=== PATIENT | female | born 1940 | race Caucasian/White ===

== ENCOUNTER 2018-08-06 14:26 | Inpatient (IN) | payer MEDICARE, BC ==
[~2018-08-06] VITALS: Ht 177.8 cm; Wt 70.8 kg
--- NOTE | ~2018-08-06 | PROC ---
[address] [address] PROCEDURE REPORT Name: BRANT BURTON Room: [address] IN M.R.#: [id number] Admission: 08/06/18 Attend Phys: Erwin Ivey MD Discharge: 08/09/18 Date of : 39 Report #: [id number] THIS REPORT FOR: //name// For GI report, please see the Provation report in Perceptive 7. By: [id number] Records Staff MARIAH /KAYLYNN
--- NOTE | ~2018-08-06 | CON ---
[address] [address] CONSULTATION Name: MICHEALBRANT K Room: [address] IN M.R.#: [id number] Admission: 08/06/18 Attend Phys: Erwin Ivey MD Discharge: Date of : 39 Report #: [id number] THIS REPORT FOR: //name// CC: Erwin Stevens MD DATE OF SERVICE: 08/07/2018 REFERRING PHYSICIAN: Erwin Ivey MD. REASON FOR CONSULTATION: 1. Acute anemia superimposed on chronic anemia. 2. End-stage renal disease, on chronic hemodialysis on Thursday, and Thursday with access issues at this present time. 3. 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 4. Remote history of ulcerative colitis, which is currently inactive at this time. 5. Inability to do a full colonoscopy earlier this year at [facility] due to excessive looping of the endoscope -- records to be retrieved. RECOMMENDATIONS: 1. We will proceed with upper endoscopy and possible colonoscopy on Thursday, but only after she has had hemodialysis. 2. We would retrieve records from [facility] regarding previous care. 3. Await Hematology and Vascular Surgery consultations. I have discussed the plans with the patient as well as her family and they are agreeable to the same. HISTORY OF PRESENT ILLNESS: The patient is a very pleasant 78-year-old white female who is admitted to the hospital with symptomatic anemia, just severe fatigue. She has had some dark stools, but has been on iron. She denies any complaints of any abdominal pain or any problems with her bowels. Her bowel frequency is normal. She has been on peritoneal dialysis for quite some time, but just before , she began on hemodialysis. She is doing this on Thursday, and Thursday, but she is having some difficulty with the same. She is followed by Dr. Chas Laughlin for the same. The primary care provider is Dr. Latrice Stevens. With regards to the history of cirrhosis, she [place] [address] CONSULTATION Name: BRANT BURTON Room: [address] IN [facility]#: [id number] Admission: 08/06/18 Attend Phys: Erwin Ivey MD Discharge: Date of : 39 Report #: [id number] at the x-ray or CAT scan and she subsequently underwent serologic studies or evaluation by consultants in Gastroenterology and Dr. Grace, which apparently was unremarkable. She has not had a liver biopsy. She has had no known family history of liver issues. She has no notable risks factors for liver disease other than the fact that she used be to obese and has diabetes. There has not been any history to suggest she has got decompensated liver disease with encephalopathy, ascites or varices. As I mentioned above, she underwent upper endoscopy and attempted colonoscopy earlier this year. We will retrieve the old records regarding the same. ALLERGIES: ALENDRONATE, HYDROMORPHONE, PENICILLIN, TRAZODONE. MEDICATIONS: Include B complex, calcitriol, calcium acetate, gabapentin, lispro, lactulose, furosemide, potassium, senna, sucroferric oxyhydroxide, pyridoxine and B12. PAST MEDICAL AND SURGICAL HISTORY: Remarkable for hypertension, diabetes, chronic kidney disease and chronic renal failure for which she is now on dialysis. She has a history of kidney stones, tonsillectomy, she had club foot surgery, hysterectomy, hernia repair, right knee surgery, laparoscopic cholecystectomy, left foot reconstruction. SOCIAL HISTORY: She lives at home with her , does not smoke or drink. FAMILY HISTORY: Negative. PHYSICAL EXAMINATION: GENERAL: Revealed an ill-appearing 78-year-old white female who is awake and alert. CARDIOPULMONARY: Revealed a systolic murmur, most likely related from her fistula. LUNGS: Clear. ABDOMEN: Soft. I cannot really appreciate her liver being firm or organomegaly. LABORATORY DATA: From 08/07/2018 revealed a white count of 7.9, hemoglobin 6.9, platelet count 142,000. On admission, the patient's hemoglobin is 5.9. She did receive 1 unit of blood. Sodium 136, potassium 3.4, chloride 99, bicarbonate is 31, BUN 33, creatinine 3.6. Her total bilirubin 0.3, alkaline phosphatase 59, AST is 37, ALT 27, albumin is 2.5. Iron saturation is 19% with ferritin of 612. Folate is 72.3 and B12 level 1107. DISCUSSION: At the present time, it is unclear to me why she has problems with acute anemia. We will proceed with upper endoscopy and possible colonoscopy early next week on Thursday and will review [place] [address] CONSULTATION Name: MICHEALBRANT Barbosa Room: [address] IN ..#: [id number] Admission: 08/06/18 Attend Phys: Erwin Ivey MD Discharge: Date of : 39 Report #: [id number] discussed plans with the patient, she is agreeable to proceed with the upper endoscopy. By: 0116 123Ace Farooq DO /faith
[2018-08-06 15:56] VITALS: BP 116/33
[2018-08-06] MEDS ORDERED: NEPHROCAPS SOFT1 CAP PO (17:16)
[2018-08-06] MEDS ORDERED: CALCITRIOL0.5 MCG PO (17:19)
[2018-08-06] MEDS ORDERED: CALCIUM ACETAT667 MG PO (17:20)
[2018-08-06] MEDS ORDERED: EYE OMEGA ADVA1 EACH PO (17:21)
[2018-08-06] MEDS ORDERED: NEURONTIN600 MG PO (17:22)
[2018-08-06] MEDS ORDERED: GENTAMICIN 0.1%15 G2 TOP (17:24)
[2018-08-06] MEDS ORDERED: HUMALOG KW100 UNIT/1 SUBQ (17:25)
[2018-08-06 17:29] LABS: MCH 30.5 pg (26.0-34.0); MCHC 31.3 g/dL (28.0-37.0); MCV 97.4 fL (80.0-100.0); MPV 8.5 fl. (7.2-11.1); RBC 1.93 mil/uL (4.20-5.00); RDW-CV 20.7 % (10.5-14.5); WBC 7.7 thou/uL (4.0-11.0)
[2018-08-06] MEDS ORDERED: CONSTULOSE10 GM/152 PO (17:29)
[2018-08-06] MEDS ORDERED: LANTUS SUBQ (17:30)
[2018-08-06 17:31] LABS: HEMATOCRIT 18.8 % (37.0-47.0)
[2018-08-06] MEDS ORDERED: POTASSIUM20 PO (17:31)
[2018-08-06] MEDS ORDERED: LASIX 80 MG TAB80 MG PO (17:31)
[2018-08-06] MEDS ORDERED: SENNA8.6 MG PO (17:32)
[2018-08-06] MEDS ORDERED: VELPHORO500 MG PO (17:33)
[2018-08-06] MEDS ORDERED: PYRIDOXINE HCL50 MG PO (17:33)
[2018-08-06] MEDS ORDERED: VITAMIN B12-FO1 EAC1 PO (17:35)
[2018-08-06 17:37] LABS: CALCIUM 9.3 mg/dL (8.5-10.1); CREATININE 3.3 mg/dL (0.6-1.3); POTASSIUM 3.9 mmol/L (3.5-5.1)
[2018-08-06 17:40] LABS: HEMOGLOBIN 5.9 gm/dL (12.0-15.0)
[2018-08-06 17:42] LABS: ALBUMIN 2.5 g/dL (3.4-5.0); TOTAL BILIRUBIN 0.3 mg/dL (<0.1-1.0); TOTAL PROTEIN 5.5 g/dL (6.4-8.2)
[2018-08-06 18:31] VITALS: BP 123/50; BP 124/51; BP 130/54
[2018-08-06 20:00] VITALS: BP 124/51
[2018-08-07 00:39] VITALS: BP 110/38
[2018-08-07 04:18] LABS: ABSOLUTE BASOPHILS 0.1 thou/uL (0.0-0.2); ABSOLUTE EOSINOPHILS 0.2 thou/uL (0.0-0.7); ABSOLUTE MONOCYTES 1.1 thou/uL (0.0-1.2); ABSOLUTE NEUTROPHILS 5.6 thou/uL (1.6-8.1); LYMPHOCYTES 12.1 %; MCH 31.1 pg (26.0-34.0); MCV 94.2 fL (80.0-100.0); MONOCYTES 13.9 %; MPV 8.3 fl. (7.2-11.1); NUCLEATED RBCS 0 /100WBC; PLATELET COUNT* 142 thou/uL (150-400); RBC 2.23 mil/uL (4.20-5.00); RDW-CV 19.8 % (10.5-14.5); WBC 7.9 thou/uL (4.0-11.0)
[2018-08-07 04:21] LABS: CALCIUM 9.2 mg/dL (8.5-10.1); CREATININE 3.6 mg/dL (0.6-1.3); POTASSIUM 3.4 mmol/L (3.5-5.1)
[2018-08-07 04:45] LABS: HEMOGLOBIN 6.9 gm/dL (12.0-15.0)
[2018-08-07 05:19] VITALS: BP 113/40
[2018-08-07 08:20] VITALS: BP 123/39
[2018-08-07 12:00] VITALS: BP 113/37
[2018-08-07 16:00] VITALS: BP 98/36
[2018-08-07 20:00] VITALS: BP 121/46
[2018-08-08 00:08] VITALS: BP 108/49
[2018-08-08 04:00] VITALS: BP 115/37
[2018-08-08 04:33] LABS: ABSOLUTE BASOPHILS 0.1 thou/uL (0.0-0.2); ABSOLUTE EOSINOPHILS 0.2 thou/uL (0.0-0.7); ABSOLUTE LYMPHOCYTES 1.3 thou/uL (0.8-5.3); ABSOLUTE MONOCYTES 1.2 thou/uL (0.0-1.2); ABSOLUTE NEUTROPHILS 5.9 thou/uL (1.6-8.1); BASOPHILS 0.6 %; EOSINOPHILS 1.8 %; HEMATOCRIT 21.4 % (37.0-47.0); LYMPHOCYTES 15.2 %; MCH 31.1 pg (26.0-34.0); MCHC 32.5 g/dL (28.0-37.0); MCV 95.9 fL (80.0-100.0); MONOCYTES 13.9 %; MPV 8.4 fl. (7.2-11.1); NUCLEATED RBCS 0 /100WBC; PLATELET COUNT* 152 thou/uL (150-400); POLYS 68.5 %; RBC 2.23 mil/uL (4.20-5.00); WBC 8.7 thou/uL (4.0-11.0)
[2018-08-08 04:48] LABS: HEMOGLOBIN 6.9 gm/dL (12.0-15.0)
[2018-08-08 05:02] LABS: CALCIUM 9.1 mg/dL (8.5-10.1); CREATININE 4.3 mg/dL (0.6-1.3); POTASSIUM 3.6 mmol/L (3.5-5.1)
[2018-08-08 07:50] VITALS: BP 96/38
--- NOTE | 2018-08-08 08:35 | CON ---
[address] [address] CONSULTATION Name: BRANT BURTNO Room: [address] IN .R.#: [id number] Admission: 08/06/18 Attend Phys: Erwin Ivey MD Discharge: Date of : 39 Report #: [id number] THIS REPORT FOR: //name// CC: Erwin Pollard Rodney DATE OF SERVICE: 08/07/2018 NEPHROLOGY CONSULTATION REFERRING PHYSICIAN: Erwin Ivey M.D. REASON FOR NEPHROLOGY CONSULTATION: End-stage renal disease for hemodialysis needs. REASON FOR ADMISSION: Anemia, weakness and fatigue. HISTORY OF PRESENT ILLNESS: This is a 78-year-old white female who has a past medical history of end-stage renal disease, has been on dialysis since 2015, has been on peritoneal dialysis, but transitioned to hemodialysis just a week ago. The patient was sent to the hospital for blood transfusion as her hemoglobin was 5.9 and she has received a unit of blood transfusion last night and she has come up to 6.9 and will most likely receive another unit of blood transfusion today. She still makes a lot of urine and goes about 4-5 times a day. End-stage renal disease is because of diabetes and hypertension. GI has been consulted to evaluate her over here as well. The reason why she was switched from peritoneal dialysis to hemodialysis for about 2-4 weeks for now is because she was getting a lot of fluid with peritoneal dialysis and so we are trying to give her peritoneal membranes some rest. Her is at her bedside. She is currently not having any shortness of breath. REVIEW OF SYSTEMS: As mentioned in the history of present illness. She has marked leg edema and she is very weak. ALLERGIES: ALENDRONATE, HYDROMORPHONE, PENICILLIN G AND TRAZODONE. PAST MEDICAL AND SURGICAL HISTORY: Includes tonsillectomy, club foot surgery, hysterectomy, hernia repair, right knee arthroscopic surgery, laparoscopic cholecystectomy, left foot reconstruction and right ruptured tendon unipolar repair. The patient has hemodialysis every Thursday, and Thursday for now, was on peritoneal dialysis and temporarily had been transitioned to hemodialysis. Heart murmur, kidney stones and she has a right arm AV fistula, with good bruit and thrill. HOME MEDICATIONS: Include B complex, calcitriol, calcium acetate, [address], [place] [address] CONSULTATION Name: BRANT BURTON Room: [address]#: [id number] Admission: 08/06/18 Attend Phys: Erwin Ivey MD Discharge: Date of : 39 Report #: [id number] gabapentin, gentamicin, lispro, lactulose, Glargine, furosemide, potassium chloride, sennosides, sucroferric oxyhydroxide, pyridoxine and cyanocobalamin. FAMILY HISTORY: Not significant here, but mother had history of anemia. SOCIAL HISTORY: She lives at home with her . She does not smoke, drink or use alcohol. PHYSICAL EXAMINATION: VITAL SIGNS: Blood pressure is 113/40, respiratory rate is 19, pulse rate is 75, temperature 36.8 and pulse ox is 97% on room air. GENERAL: She is awake, alert and oriented x 3. HEAD, EYES, EARS, NOSE AND THROAT: Mucous membranes are moist. NECK: There is no JVD. CHEST: Bilateral diminished breath sounds. No crackles or wheezing. CARDIOVASCULAR: S1, S2 normal. She has an ejection systolic murmur of 3/6, which is heard throughout the precordium. ABDOMEN: Soft, nondistended and nontender. Bowel sounds are present. EXTREMITIES: Lower extremities, she has 2-3+ lower extremity edema. DIALYSIS ACCESS: She has a peritoneal dialysis catheter in the left lower quadrant, which is intact. There is no drainage, discharge or erythema around the site. She has a right arm AV fistula, with good bruit and good thrill. NEUROLOGICAL FUNCTION: Gross neurological function is intact. PSYCHIATRIC: Mood and affect seems to be normal. LABORATORY DATA: Her hemoglobin is 6.9. Potassium is 3.4 and BUN is 33 and other labs were reviewed. IMAGING: Sacrococcygeal x-ray and pelvic x-ray were reviewed. ASSESSMENT: 1. End-stage renal disease, on hemodialysis for now, prior transition from peritoneal dialysis Thursday, and Thursday. 2. Severe anemia causing weakness. Iron saturation is 19%. Primary team has called GI for further evaluation. She might have to see a linen folder as an outpatient. 3. Fluid overload in the setting of renal insufficiency. 4. Coccygeal pain. There was no evidence of fracture on her x-ray. 5. Hyperphosphatemia secondary to hyperparathyroidism. Continue her home binders. PLAN: 1. She will require another unit of blood, can give her with dialysis today. We will dialyze her for 3-1/2 hours to remove 4 liters off of her if she tolerates. 2. She is also hypokalemic with potassium of 3.4 [place] [address] CONSULTATION Name: BRANT BURTON Room: [address] [facility] IN [facility].#: [id number] Admission: 08/06/18 Attend Phys: Erwin Ivey MD Discharge: Date of : 39 Report #: [id number] supplementation and will receive blood, which will also help with the potassium. We will use a 3 K bath for her dialysis today. 3. The primary team is trying to evaluate her anemia. Thank you for this consultation and we will continue to follow with you for her dialysis needs. <ELECTRONICALLY SIGNED> By: Bernice Gordon MD 08/08/18 0835 [id number] [id number] Gordon MD /nt
[2018-08-08 16:00] VITALS: BP 93/39
[2018-08-08 17:47] LABS: ABSOLUTE BASOPHILS 0.1 thou/uL (0.0-0.2); ABSOLUTE EOSINOPHILS 0.2 thou/uL (0.0-0.7); ABSOLUTE LYMPHOCYTES 0.9 thou/uL (0.8-5.3); ABSOLUTE MONOCYTES 1.4 thou/uL (0.0-1.2); BASOPHILS 0.9 %; EOSINOPHILS 2.3 %; HEMATOCRIT 26.2 % (37.0-47.0); HEMOGLOBIN 8.5 gm/dL (12.0-15.0); LYMPHOCYTES 10.8 %; MCH 30.5 pg (26.0-34.0); MCHC 32.5 g/dL (28.0-37.0); MCV 93.8 fL (80.0-100.0); MONOCYTES 16.6 %; MPV 7.7 fl. (7.2-11.1); NUCLEATED RBCS 0 /100WBC; PLATELET COUNT* 149 thou/uL (150-400); POLYS 69.4 %; RBC 2.79 mil/uL (4.20-5.00); RDW-CV 19.5 % (10.5-14.5); WBC 8.6 thou/uL (4.0-11.0)
[2018-08-08 17:54] LABS: CALCIUM 8.3 mg/dL (8.5-10.1); POTASSIUM 3.5 mmol/L (3.5-5.1)
[2018-08-08 17:55] LABS: CREATININE 2.6 mg/dL (0.6-1.3)
[2018-08-09] VITALS (7 sets, daily range): BP systolic 98–110; BP diastolic 33–37
[2018-08-09 04:55] LABS: ABSOLUTE BASOPHILS 0.1 thou/uL (0.0-0.2); ABSOLUTE EOSINOPHILS 0.3 thou/uL (0.0-0.7); ABSOLUTE LYMPHOCYTES 1.9 thou/uL (0.8-5.3); ABSOLUTE MONOCYTES 1.3 thou/uL (0.0-1.2); ABSOLUTE NEUTROPHILS 4.7 thou/uL (1.6-8.1); BASOPHILS 0.7 %; EOSINOPHILS 3.4 %; HEMOGLOBIN 8.8 gm/dL (12.0-15.0); LYMPHOCYTES 23.3 %; MCH 30.6 pg (26.0-34.0); MCHC 32.5 g/dL (28.0-37.0); MCV 94.3 fL (80.0-100.0); MPV 8.5 fl. (7.2-11.1); NUCLEATED RBCS 0 /100WBC; PLATELET COUNT* 167 thou/uL (150-400); POLYS 56.6 %; RBC 2.86 mil/uL (4.20-5.00); RDW-CV 20.2 % (10.5-14.5); WBC 8.4 thou/uL (4.0-11.0)
[2018-08-09 04:58] LABS: CALCIUM 8.4 mg/dL (8.5-10.1); CREATININE 3.2 mg/dL (0.6-1.3); POTASSIUM 3.9 mmol/L (3.5-5.1)
[2018-08-09 05:03] LABS: URINE BILIRUBIN NEGATIVE (Negative); URINE BLOOD TRACE (Negative); URINE CLARITY CLEAR; URINE COLOR YELLOW; URINE GLUCOSE-RANDOM NEGATIVE (Negative); URINE KETONES NEGATIVE (Negative); URINE LEUKOCYTES-REFLEX TRACE (Negative); URINE NITRITE-REFLEX NEGATIVE (Negative); URINE PROTEIN NEGATIVE (Negative); URINE UROBILINOGEN 0.2 E.U./dl (0.2-1.0)
[2018-08-09 05:17] LABS: AMORPHOUS URATES Few /LPF (None Seen); BACTERIA-REFLEX >30 Many /HPF (None Seen); CASTS None Seen /LPF (None Seen); MUCUS 0-3 Light strn/LPF (None Seen); SQUAMOUS 0-3 Few /LPF (0-3); TRANSITIONAL EPITHEL CELL 0-3 Few /LPF (None Seen); URINE RBC 3-10 Few /HPF (0-2); URINE WBC-REFLEX 6-15 Few /HPF (0-5)
[2018-08-09 07:29] LABS: ANISOCYTOSIS 2+; HYPOCHROMASIA 2+; PLATELET ESTIMATE ADEQUATE
--- NOTE | 2018-08-09 10:39 | EKG ---
[place] [address] ELECTROCARDIOGRAM REPORT Name: BRANT BURTON Room: [address] ADM IN M.R.#: [id number] Admission: 08/06/18 Attend Phys: Erwin Ivey MD Discharge: Date of : 39 Report #: [id number] THIS REPORT FOR: //name// [facility] Test Date: 2018-08-09 Test Time: 07:57:17 Pat Name: BRANT BURTON Department: Room: [address] Gender: F Duty Manager: [employer] : 1940 Requested By: Erwin Ivey Order Number: [id number] Prakash MD: Ronak Wasserman Measurements Intervals [place] Rate: 68 P: 55 MT: 217 QRS: -23 QRSD: 156 T: 21 QT: 488 QTc: 520 Interpretive Statements Sinus rhythm Borderline prolonged MT interval Right bundle branch block No previous ECG available for comparison Electronically Signed On 08-09-2018 10:38:55 [employer]TING [employer]INE [employer] by Ronak Wasserman [email or web address] <ELECTRONICALLY SIGNED> By: Ronak Wasserman MD, [facility] 08/09/18 [facility] [phone] Ronak Wasserman MD, FACC /EPI
[2018-08-10 08:09] LABS: IgA 434 mg/dL (64-422); IgG 804 mg/dL (700-1600); IgM 39 mg/dL (26-217)
[2018-08-10 16:08] LABS: KAPPA FREE LIGHT CHAINS 131.1 mg/L (3.3-19.4); LAMBDA FREE LIGHT CHAINS 130.3 mg/L (5.7-26.3)
--- NOTE | 2018-08-11 14:28 | CON ---
[address] [address] CONSULTATION Name: BRANT BURTON Room: [address] IN ..#: [id number] Admission: 08/06/18 Attend Phys: Erwin Ivey MD Discharge: 08/09/18 Date of : 39 Report #: [id number] THIS REPORT FOR: //name// CC: Erwin Stevens DATE OF SERVICE: 08/09/2018 REASON FOR CONSULTATION: Anemia. INDICATIONS: A 78-year-old female who has been admitted because of severe anemia, which was normocytic. Previously, she had been on peritoneal dialysis and switched to hemodialysis. The patient upon admission had hemoglobin of 5.9. She has been transfused multiple units, around 3, and her hemoglobin today came back up as 8.8. The patient had also extensive GI workup previously around a year ago which was significant for erosive gastritis. Otherwise, she is in the process of having EGD today. REVIEW OF SYSTEMS: All systems were reviewed. It was negative except the above. PAST MEDICAL HISTORY: End-stage renal disease, on dialysis; diabetes mellitus, liver cirrhosis. PAST SURGICAL HISTORY: Tonsillectomy, hysterectomy, hernia repair, right knee arthroscopic surgery, laparoscopic cholecystectomy, left foot reconstruction. MEDICATIONS: Per admission list. ALLERGIES: TRAZODONE, HYDROMORPHONE, PENICILLIN. FAMILY HISTORY: Noncontributory. SOCIAL HISTORY: No smoking, alcohol abuse, no drug abuse. PHYSICAL EXAMINATION: VITAL SIGNS: Today, temperature 37.1, pulse 68, respirations 17, blood pressure is 102/33, SpO2 is 97% on room air. GENERAL: The patient was sitting in a chair. She was not in acute distress. LUNGS: Clear to auscultation bilaterally. HEART: Regular rate and rhythm. S1, S2 within normal limits. ABDOMEN: Soft, nontender, nondistended, bowel sounds positive. EXTREMITIES: No edema, no cyanosis, no clubbing. NEUROLOGIC: She was awake, alert, [place] [address] CONSULTATION Name: BRANT BURTON Room: [address]#: [id number] Admission: 08/06/18 Attend Phys: Erwin Ivey MD Discharge: 08/09/18 Date of : 39 Report #: [id number] LABORATORY DATA: Today, WBC 8.4, hemoglobin is 8.8 today, MCV is 94.3, platelets 167. No nucleated RBCs. Creatinine is 3.2 today. Calcium is 8.4. TIBC 256, saturations 19, ferritin 612. Bilirubin 0.3, AST is 37, ALT 27, alkaline phosphatase 59. B12 is 1107, folate 72.3, TSH 2.3. X-ray of the pelvis was normal. ASSESSMENT AND PLAN: A 78-year-old female who is being evaluated today because of a normocytic anemia most likely due to: 1. Renal failure/liver cirrhosis. However, her platelets and WBC have been within normal range. The patient has been already transfused 3 units of PRBC. Her hemoglobin is stable. Iron profile, ferritin was elevated, most likely due to liver disease, no evidence of nutritional deficiencies. At this point, I would like to wait for a GI workup. 2. Complete anemia workup by obtaining hemolysis parameters and also a peripheral blood smear, serum electrophoresis with immunofixation and free light chain, serum copper level. We will follow the patient's hemoglobin during hospitalization. <ELECTRONICALLY SIGNED> By: Joseluis Dewitt MD 08/11/18 1428 0824 1815Monadja Dewitt MD /nt
== END 2018-08-09 18:37 | disposition home or self-care (01) | DRG 811 ==
LOC: M.3W 14:26
PROVIDERS: Internal Medicine; Internal Medicine Gastroenterology; ADMIT Internal Medicine
PROC: 30233N1 Transfusion of Nonautologous Red Blood Cells into Peripheral Vein, Percutaneous Approach (ICD-10-PCS; principal; 2018-08-06)
PROC: 5A1D70Z Performance of Urinary Filtration, Intermittent, Less than 6 Hours Per Day (ICD-10-PCS; 2018-08-07)
PROC: 5A1D70Z Performance of Urinary Filtration, Intermittent, Less than 6 Hours Per Day (ICD-10-PCS; 2018-08-08)
PROC: 0D568ZZ Destruction of Stomach, Via Natural or Artificial Opening Endoscopic (ICD-10-PCS; 2018-08-09)
DX: D50.0 Iron deficiency anemia secondary to blood loss (chronic) (principal); N18.6 End stage renal disease; I13.2 Hypertensive heart and chronic kidney disease with heart failure and with stage 5 chronic kidney disease, or end stage renal disease; N25.81 Secondary hyperparathyroidism of renal origin; K74.60 Unspecified cirrhosis of liver; I50.9 Heart failure, unspecified; K31.819 Angiodysplasia of stomach and duodenum without bleeding; E11.22 Type 2 diabetes mellitus with diabetic chronic kidney disease; E83.39 Other disorders of phosphorus metabolism; Z90.710 Acquired absence of both cervix and uterus; Z90.49 Acquired absence of other specified parts of digestive tract; Z87.442 Personal history of urinary calculi; Z99.2 Dependence on renal dialysis; Z79.899 Other long term (current) drug therapy; Z88.0 Allergy status to penicillin; Z88.8 Allergy status to other drugs, medicaments and biological substances; Z83.2 Family history of diseases of the blood and blood-forming organs and certain disorders involving the immune mechanism